=== PATIENT | female | born 1965 | race Caucasian/White ===

== ENCOUNTER 2017-11-22 09:33 | Inpatient (IN) | payer OTHER ==
[~2017-11-22] VITALS: Ht 152.4 cm; Wt 63.5 kg
[2017-11-22] MEDS ORDERED: BENADRYL25 MG PO (10:02)
[2017-11-22] MEDS ORDERED: ADVAIR HFA 230/12 GM IH (10:02)
== END 2017-11-26 11:04 | disposition home or self-care (01) | DRG 743 ==
LOC: SURG 11-23 08:34 → O/R 11-23 08:34 → SURH 11-23 09:01 → SURG 11-23 16:31
PROVIDERS: Obstetrics & Gynecology
PROC: 0UT70ZZ Resection of Bilateral Fallopian Tubes, Open Approach (ICD-10-PCS; 2017-11-23)
PROC: 0DNW0ZZ Release Peritoneum, Open Approach (ICD-10-PCS; 2017-11-23)
PROC: 0UT20ZZ Resection of Bilateral Ovaries, Open Approach (ICD-10-PCS; 2017-11-23)
PROC: 0UT90ZZ Resection of Uterus, Open Approach (ICD-10-PCS; principal; 2017-11-23 13:30)
DX: N80.0 Endometriosis of uterus (principal); N72 Inflammatory disease of cervix uteri; N73.6 Female pelvic peritoneal adhesions (postinfective); N92.0 Excessive and frequent menstruation with regular cycle